=== PATIENT | male | born 1990 | race Two or more races ===

== ENCOUNTER 2024-12-01 16:28 | Emergency (ER) | payer OTHER ==
[~2024-12-01] VITALS: Ht 177.8 cm; Wt 127.0 kg
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
--- NOTE | 2024-12-01 17:40 | DVH ---
CLINICAL INDICATION: trauma TECHNIQUE: XY L SHOULDER 2+ VIEW XRAY Comparison: None FINDINGS/IMPRESSION: : There is no evidence of acute fracture or dislocation. Soft tissues are unremarkable.
[2024-12-01 18:20] VITALS: BP 135/70; PULSE 90; RESP 18; TEMP 98.5; O2SAT 98
== END 2024-12-01 18:26 | disposition home or self-care (01) ==
LOC: EDBD 16:28 → ER 16:28
DX: S46.912A Strain of unspecified muscle, fascia and tendon at shoulder and upper arm level, left arm, initial encounter (principal); V89.2XXA Person injured in unspecified motor-vehicle accident, traffic, initial encounter; Y93.89 Activity, other specified; Y92.89 Other specified places as the place of occurrence of the external cause; Y99.8 Other external cause status
CPT/HCPCS: 73030